=== PATIENT | male | born 1955 | race Caucasian/White ===

== ENCOUNTER 2020-08-27 05:50 | Day surgery (SDC) | payer OTHER ==
[~2020-08-27] VITALS: Ht 177.8 cm; Wt 102.5 kg
--- NOTE | ~2020-08-27 | OP ---
PATIENT NAME: JAZZY MENDIETA MEDICAL RECORD: [id number] :55 LOCATION:D.OPS ADMISSION DATE: SURGEON: JOE HEREDIA MD DATE OF OPERATION: 08/27/2020 PREOPERATIVE DIAGNOSES: 1. Left inguinal hernia. 2. Hypertension. 3. Hypercholesterolemia. POSTOPERATIVE DIAGNOSES: 1. Left inguinal hernia. 2. Hypertension. 3. Hypercholesterolemia. PROCEDURE: Left inguinal hernia repair with medium PHS mesh. SURGEON: Joe Heredia MD DESCRIPTION OF PROCEDURE: The patient's abdomen was prepped and draped in sterile fashion. An oblique incision was made in the left lower quadrant. Electrocautery was used to dissect through the subcutaneous tissues down to the external oblique fascia. This fascia was opened up to the external ring using electrocautery. The spermatic cord was then elevated and the Laona was placed around it. There were 2 branches of the ilioinguinal nerve and these were high ligated. The patient's testicle was eviscerated and we could see there was a small hydrocele. We opened up the tissue surrounding the testicle and released the fluid and then took out some of the remaining wall around the testicle to obliterate the hydrocele. The patient has had a large indirect hernia defect. This was dissected away from the spermatic cord. We then pushed this back down into the abdominal cavity. An opening was made in the inguinal floor and the preperitoneal space of Retzius was opened up in all directions. A medium PHS mesh was inserted and sutured down on all sides using multiple interrupted 0 Vicryls. The wound bed was irrigated out with normal saline and care was taken to assure there was no sign of any bleeding. At this point, the external oblique fascia was closed with running 2-0 Vicryl. Joycelyn's was closed with interrupted 3-0 Vicryl and the skin was closed with running subcutaneous 5-0 Monocryl. A 10 mL of 0.25% Marcaine with epinephrine was infused into the surrounding tissues and the wounds were dressed appropriately. COMPLICATIONS: None. CONDITION: Stable. ANESTHESIA: General endotracheal and local. BLOOD LOSS: Minimal. TRANSINT:[id number] Voice Confirmation ID: [id number] DOCUMENT ID: [id number] OPERATIVE REPORT [id number] JAZZY MENDIETA JOE HEREDIA MD CC: LOGAN BABB MD [id number] DICTATION DATE: 08/27/20922 CORPORATE ASSOCIATE ATTORNEY: 08/27/20 0950 [facility] [address] [facility] [place], [facility]
[~2020-08-27 05:50] MED LIST: COZAAR50 MG PO
[2020-08-27 06:21] LABS: BASOPHILS 0.8 % (0-2); EOSINOPHILS 1.9 % (0-7); HEMATOCRIT 47.1 % (42.0-54.0); LYMPHOCYTES 26.5 % (15-50); MCH 31.7 pg (26.0-34.0); MCHC 33.9 g/dL (31.0-37.0); MCV 93.6 fL (80.0-100.0); MEAN PLATELET VOLUME 7.1 fL (7.4-10.4); MONOCYTES 10.2 % (2-11); NEUTROPHILS 60.6 % (40-80); RBC 5.04 10x6/uL (4.20-6.10); RDW 12.8 % (11.5-14.5)
[2020-08-27 06:24] LABS: PLATELET COUNT 242 10x3/uL (130-400)
[2020-08-27 06:29] LABS: ANION GAP 9.5 mmol/L (8-16); CALCIUM 8.4 mg/dL (8.5-10.1); CARBON DIOXIDE 30.5 mmol/L (21.0-32.0); CREATININE - SERUM 1.1 mg/dL (0.6-1.3)
[2020-08-27] MEDS ORDERED: TUMERIC PO (06:50)
[2020-08-27] MEDS ORDERED: SELENIUM (06:52)
[2020-08-27] MEDS ORDERED: FISH OIL 1,0001 CA1 (06:53)
[2020-08-27 07:10] VITALS: BP 144/88; Ht 177.8 cm; Wt 102.5 kg
[2020-08-27] MEDS ORDERED: HYDROCODON-ACE1 EA10 PO (09:21)
--- NOTE | 2020-08-27 11:55 | NUR ---
1155 PT NAUSEATED AND MEDICATED X1
--- NOTE | 2020-08-27 15:10 | NUR ---
1115 MEDICATED FOR PAIN AFTER RECIEVING A SNAKE AND TOLERATED WELL. 1245 VOIDED WITHOUT DIFFICULTY. 1255 IV REMOVED AND INSTRUCTIONS GIVEN.
== END 2020-08-27 13:00 | disposition home or self-care (01) ==
LOC: D.OPS 05:50
PROVIDERS: ATTEND Surgery
DX: K40.90 Unilateral inguinal hernia, without obstruction or gangrene, not specified as recurrent (principal); I10 Essential (primary) hypertension; E78.00 Pure hypercholesterolemia, unspecified